=== PATIENT | male | born 1995 | race Caucasian/White ===

== ENCOUNTER 2019-05-20 00:58 | Emergency (ER) | payer SELFPAY ==
[~2019-05-20] VITALS: Ht 167.6 cm; Wt 92.8 kg
[2019-05-20] MEDS ORDERED: ipratropium/albuterol 3ml nebule NEB ONE (01:10)
[2019-05-20] MEDS ORDERED: dexamethasone 4mg tablet PO ONE (01:10)
--- NOTE | 2019-05-20 01:27 | NUR ---
RESP AT BEDSIDE FOR TREATMENT
[2019-05-20] MEDS ORDERED: IPRA3AMP31 IH (01:47)
[2019-05-20] MEDS ORDERED: ALBU18HF2 INH (01:47)
[2019-05-20] MEDS ORDERED: PRED20TA PO (01:47)
[2019-05-20 02:16] VITALS: BP 123/85
== END 2019-05-20 02:20 | disposition home or self-care (01) ==
LOC: ER 00:59
DX: J45.901 Unspecified asthma with (acute) exacerbation (principal); Z79.899 Other long term (current) drug therapy
CPT/HCPCS: 94640; 99283